=== PATIENT | female | born 1940 | race Caucasian/White ===

== ENCOUNTER 2019-10-04 06:50 | Day surgery (SDC) | payer BC ==
[2019-09-27 11:42] VITALS: BMI 33.2
[2019-10-04] MEDS ORDERED: BUPIVACAINE HCL/PF 2.5 MG/ML - 30 ML VIAL IJ ONE (07:22)
[2019-10-04] MEDS ORDERED: EPINEPHrine 1:1,000 1 MG/1 ML - 30ML VIAL (INJECTION) ONE (07:22)
[2019-10-04] MEDS ORDERED: PROPOFOL 20 ML ONE ×2 (08:26)
[2019-10-04] MEDS ORDERED: MIDAZOLAM HCL 2 MG/2 ML SINGLE DOSE VIAL ONE (08:27)
[2019-10-04] MEDS ORDERED: SUCCINYLCHOLINE CHLORIDE 200 MG/10 ML SYRINGE ONE (08:27)
[2019-10-04] MEDS ORDERED: DEXAMETHASONE SOD PHOSPHATE 4 MG/1 ML VIAL ONE (08:35)
[2019-10-04] MEDS ORDERED: ONDANSETRON 4 MG/2 ML VIAL ONE ×2 (08:35→09:32)
[2019-10-04] MEDS ORDERED: LIDOCAINE HCL/PF 2% SDV 5ML VIAL ONE (08:35)
[2019-10-04] MEDS ORDERED: KETOROLAC TROMETHAMINE 30 MG/1 ML VIAL ONE (08:35)
[2019-10-04] MEDS ORDERED: ceFAZolin SODIUM 1 GM VIAL ONE (08:36)
[2019-10-04] MEDS ORDERED: ePHEDrine SULFATE 50 MG/1 ML AMPULE ONE (08:45)
[2019-10-04] MEDS ORDERED: ATROPINE SO4 0.4 MG/1 ML VIAL ONE (08:54)
[2019-10-04] MEDS ORDERED: BUPIVACAINE HCL/PF 0.25% (2.5MG/ML) 10 ML VIAL IJ ONE (08:56)
[2019-10-04] MEDS ORDERED: LACTATED RINGERS SOLUTION 1,000 ML IV SCH (10:45)
[2019-10-04] MEDS ORDERED: ONDANSETRON 4 MG/2 ML VIAL IVPUSH PRN (10:45)
[2019-10-04] MEDS ORDERED: oxyCODONE HCL 5 MG TABLET PO PRN (10:45)
[2019-10-04 11:32] VITALS: BP 121/68; PULSE 54; TEMP 98.2
--- NOTE | 2019-10-04 13:04 | OP ---
DATE OF OPERATION: 10/04/2019 SURGEON: Shivam Bautista MD CHORE WORKER: RAMAN Perez PREOPERATIVE DIAGNOSES: 1. Right knee medial and lateral meniscal tear. 2. Right knee cartilage injury. 3. Right knee synovitis. POSTOPERATIVE DIAGNOSES: 1. Right knee medial and lateral meniscal tear. 2. Right knee cartilage injury. 3. Right knee synovitis. PROCEDURE: 1. Right knee arthroscopy with partial meniscectomy of lateral meniscus. CPT code 19730. 2. Right knee arthroscopy with chondroplasty and abrasion plasty. CPT code 28532. 3. Right knee arthroscopy with synovectomy. CPT code 76100. FINDINGS: 1. Medial meniscus body to posterior horn tear inner 1/3, bucket-handle type. 2. Lateral meniscus central body tear. 3. Synovitis, patellofemoral medial, lateral notch area. 4. Grade 3 changes, 6 cm x 4 cm, medial portion and anterior portion of medial femoral condyle, with surrounding 1-2 changes. 5. ACL and PCL intact. 6. Minor grade 2 changes anterior lateral tibial plateau. 7. Anterior grade 2-3 cartilage injury, patella, with posterior grade 4 changes 4 cm x 2 cm, and patellofemoral trochlea grade 3 changes. PROCEDURE: Informed consent was obtained. The patient came to the operating room, where the lower extremity was prepped and draped in a sterile fashion. A tourniquet was placed on the upper thigh, but not inflated. Using standard arthroscopic technique, a lateral incision and portal was made to allow for introduction of the camera into the suprapatellar bursa. This was then taken to the medial joint line, where under direct visualization, a medial incision and portal was made. Excessive synovium noted in the medial, lateral and patellofemoral and notch area was removed by an upbiter, shaver and Bovie cautery. This was found to bring in inflammatory tissue into the joint surface, a source of pain and dysfunction. Probing of the medial and lateral meniscus found tears, as described in the findings. These were removed with the upbiter and shaver and taken back to a stable rim. Grade 2 to 3 degenerative changes were treated with a chondroplasty, removing all flaking surfaces with low-setting Bovie along the periphery to prevent further flaking. Grade 4 changes, as noted, were treated with an abrasoplasty, creating a bleeding surface at the bone/cartilage interface. Aggressive debridement with shaver/mignon created bleeding surface. Micro fracture also done when indicated in findings. All areas of the knee were once again reexamined. The knee was then drained and a single suture was placed in all portals. A sterile dressing was placed and the patient was transferred to the recovery room without complication. The PA listed above was present and assisted at surgery. Their presence was absolutely medically necessary for the completion of the procedure. They helped hold the arthroscopy, pass instruments (and implants when indicated) and the procedure could not have been completed without their assistance. SHIVAM BAUTISTA M.D. [id number]
--- NOTE | 2019-10-08 16:22 | PATH ---
Surgical Pathology Report Patient Name: JOSÉ MIGUEL LEAVITT Med. Rec. #: [id number] /Age/Gender: 1940 (Age: 79) / F Account: [id number] Location: [facility] Taken: 10/04/2019 Received: 10/04/2019 Reported: 10/08/2019 Physicians: Shivam Arboleda M.D. Specimen(s) Received SHAVINGS RIGHT KNEE Clinical History Right knee derangement Final Diagnosis RIGHT KNEE SHAVINGS: PORTIONS OF SYNOVIAL TISSUE WITH FOCAL HYPERPLASIA AND CHRONIC INFLAMMATION. 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 Electronically Signed Bella Garcia M.D. Gross Description Received in formalin, labeled "right knee shavings" is a 2.7 x 2 x 0.8 cm aggregate of light and yellow, avila, soft tissue. Insurance Salesperson tissue is submitted in one cassette. AE/10/04/2019 ebram/10/04/2019
== END 2019-10-04 11:20 | disposition home or self-care (01) ==
LOC: FASU 06:50
PROVIDERS: ATTEND Orthopaedic Surgery
PROC: 0SBC4ZZ Excision of Right Knee Joint, Percutaneous Endoscopic Approach (ICD-10-PCS; 2019-10-04)
PROC: 0SBC4ZZ Excision of Right Knee Joint, Percutaneous Endoscopic Approach (ICD-10-PCS; 2019-10-04)
PROC: 0SBC4ZZ Excision of Right Knee Joint, Percutaneous Endoscopic Approach (ICD-10-PCS; principal; 2019-10-04 08:52)
DX: S83.241A Other tear of medial meniscus, current injury, right knee, initial encounter (principal); S83.281A Other tear of lateral meniscus, current injury, right knee, initial encounter; S83.8X1A Sprain of other specified parts of right knee, initial encounter; M65.861 Other synovitis and tenosynovitis, right lower leg; X58.XXXA Exposure to other specified factors, initial encounter; Y93.9 Activity, unspecified; Y92.9 Unspecified place or not applicable
CPT/HCPCS: 88304-TC; 94760